=== PATIENT | female | born 1960 | race Caucasian/White ===

== ENCOUNTER → 2017-05-29 15:58 | Outpatient (CLI) | payer BC, SELFPAY ==
--- NOTE | 2017-05-29 16:04 | MM_ITS ---
MM Dig screening mamm BI w/CAD CAD Screening ORDERING PHYSICIAN : Yanna Baker MD PATIENT AGE: 56 years GENDER: Female HISTORY. No hormones. No new complaints. Family history. Mother with breast cancer age 54 TECHNIQUE: Standard CC and MLO images were obtained. R2 CAD reviewed. COMPARISON: Previous mammograms: April 2016, March 2015, December 2013 FINDINGS: Low-density breast bilaterally with generalized fatty replacement. No dominant mass nor suspicious calcifications. No significant architectural distortion. No new findings of concern. Is stable deep axillary lymph nodes bilaterally. Follow-up in one year adequate bilateral IMPRESSION: Stable bilateral mammogram with no significant new areas of concern. BI-RADS Category: 1 Negative RECOMMENDED FOLLOW-UP: 1YR - 1 YEAR FOLLOW-UP (A letter has been sent to the patient regarding results of the study.)
== END ==
PROVIDERS: Family Provider Family Medicine; PCP Family Medicine; Visit Provider Family Medicine
DX: Z12.31 Encounter for screening mammogram for malignant neoplasm of breast (principal)
CPT/HCPCS: 77067

== ENCOUNTER → 2017-08-10 15:56 | Outpatient (CLI) | payer BC, SELFPAY ==
--- NOTE | 2017-08-10 16:07 | XR_ITS ---
XR hip LT 2-3V w/pelvis HISTORY: Left hip pain ITS.REASON: DULCE MARIA HIP PAIN ORDERING PHYSICIAN: Leslie Ames PATIENT AGE: 57 years FINDINGS: No fracture or dislocation is evident. No significant degenerative change. No lytic or blastic change. Unremarkable soft tissues IMPRESSION: Negative left hip
--- NOTE | 2017-08-10 16:07 | XR_ITS ---
XR hip RT 2-3V w/pelvis HISTORY: Right hip pain ITS.REASON: DULCE MARIA HIP PAIN ORDERING PHYSICIAN: Leslie Ames PATIENT AGE: 57 years FINDINGS: No fracture or dislocation is evident. No significant degenerative change. No lytic or blastic change. Unremarkable soft tissues. There is a small focus of calcification in the acetabulum inferiorly consistent with a bone island well-circumscribed or could be due to an overlying phlebolith. Nonetheless, it does have a benign appearance. IMPRESSION: Small acetabular bone island versus overlying phlebolith otherwise negative right hip
== END ==
PROVIDERS: PCP Nurse Practitioner Family; Visit Provider Nurse Practitioner Family
DX: M25.552 Pain in left hip (principal); M25.551 Pain in right hip
CPT/HCPCS: 73502

== ENCOUNTER → 2017-08-31 14:31 | Outpatient (CLI) | payer BC, SELFPAY ==
--- NOTE | 2017-08-31 14:40 | US_ITS ---
US Arterial Ankle Brachial Ind INDICATION: Hypertension, bilateral leg pain at rest, claudication ORDERING PHYSICIAN: Leslie Ames PATIENT AGE: 57 years TECHNIQUE: Segmental pressures obtained of both right and left leg. These are compared to brachial blood pressure to yield index at each level sampled including summary YANIV. The data sheets from the procedure are available in PACS FINDINGS Rest study only performed today No prior studies available for comparison. Blood pressures reported are in millimeters mercury. RIGHT LEG YANIV = 1.1. Brachial BP: 138 Thigh BP: 160 Calf BP: 159 Ankle PT: 159 Ankle DP : 145 Digit =123 LEFT LEG YANIV = 1.0 Brachial BPD: 133 Thigh BP: 151 Calf BP: 148 Ankle PT:140 Ankle DP: 136 Digit = 125 Pulses and waveforms: Normal IMPRESSION: The ABIs as reported above are within normal limits. Waveforms and pulses are also unremarkable.
== END ==
PROVIDERS: Family Provider Family Medicine; PCP Nurse Practitioner Family; Visit Provider Nurse Practitioner Family
DX: M79.604 Pain in right leg (principal); M79.605 Pain in left leg
CPT/HCPCS: 93922

== ENCOUNTER → 2018-01-22 14:09 | Outpatient (CLI) | payer BC, SELFPAY ==
[2018-01-22 15:57] LABS: Blood Urea Nitrogen 20 mg/dL (7-18); Creatinine,Serum 0.57 mg/dL (0.55-1.02); Estimated Glomerular Filt Rate 109 ml/min (>60); GFR (African American) 132 ML/MIN (>60)
== END ==
PROVIDERS: PCP Family Medicine; Visit Provider Family Medicine
DX: Z01.812 Encounter for preprocedural laboratory examination (principal)
CPT/HCPCS: 36415; 82565; 84520

== ENCOUNTER → 2018-01-25 11:16 | Outpatient (CLI) | payer BC, SELFPAY ==
--- NOTE | 2018-01-25 11:25 | CT_ITS ---
CT abdomen pelvis w con CLINICAL INDICATION: Right lower quadrant pain ITS.REASON: RLQ PAIN ORDERING PHYSICIAN: Yanna Baker MD PATIENT AGE: 57 years COMPARISON: None TECHNIQUE: Axial images obtained with sagittal and coronal reformats. All CT scans at the facility use one or more dose reduction, viz: automated exposure control, ma/kV adjustment per patient size (including targeted exams where dose is matched to indication, i.e. head), or iterative reconstruction technique. PROCEDURE: Oral Contrast: Redicat IV Contrast: 75 mL's of Isovue-370. FINDINGS: No acute finding in the lung bases. The liver, spleen, gallbladder, adrenal glands, and pancreas have an unremarkable appearance. There is a small calcific density along the periphery of the right hepatic lobe. This is well-circumscribed and coarse in nature etiology indeterminate. No renal or ureteral calculi. No hydronephrosis or renal mass. There are scattered small lymph nodes in the mesentery's within the right lower quadrant and also in the retroperitoneum. The appendix has an unremarkable appearance. No intestinal obstruction or free air. No focal inflammatory change. There is been a prior hysterectomy. No pelvic mass or abnormal fluid collection, focal inflammatory change, or diverticulitis evident. No acute bony findings. Small bone island is present in the right ischium. IMPRESSION: No acute abdominal or pelvic findings. No evidence of appendicitis
== END ==
PROVIDERS: Family Provider Family Medicine; PCP Family Medicine; Visit Provider Family Medicine
DX: R10.31 Right lower quadrant pain (principal)
CPT/HCPCS: 74177; Q9967

== ENCOUNTER → 2018-07-06 16:14 | Outpatient (CLI) | payer BC, SELFPAY ==
--- NOTE | 2018-07-06 16:17 | MM_ITS ---
MM Dig screening mamm BI w/CAD CAD Screening COMPARISON: Digital mammograms with CAD 05/29/2017 and 04/22/2016 INDICATION: There is a history of breast cancer patient's mother diagnosed at age 54. TECHNIQUE: Standard CC and MLO images were obtained. R2 CAD reviewed. FINDINGS: The breasts are composed primarily of fat with scattered fibroglandular densities throughout each breast. There are multiple mole markers on each breast. There is no suspicious lesion and there are no suspicious microcalcifications. There are small nodes both axilla. IMPRESSION: Fatty type breast parenchyma with no suspicious lesion seen BI-RADS Category: 2 Benign Finding(s) RECOMMENDED FOLLOW-UP: 1YR - 1 YEAR FOLLOW-UP (A letter has been sent to the patient regarding results of the study.)
== END ==
PROVIDERS: PCP Family Medicine; Visit Provider Family Medicine
DX: Z12.31 Encounter for screening mammogram for malignant neoplasm of breast (principal)
CPT/HCPCS: 77067

== ENCOUNTER → 2019-09-07 15:24 | Outpatient (CLI) | payer OTHER, SELFPAY ==
--- NOTE | 2019-09-07 15:33 | MM_ITS ---
PROCEDURE: MM DIG SCREENING MAMM BI W/CAD Digital Breast Tomosynthesis Included CLINICAL INDICATION: SCREENING There is a history of breast cancer patient's mother diagnosed after menopause. COMPARISON: [facility] DIG MAMM-SCREEN DULCE MARIA W/CAD from 04/22/2016 [facility] MM Dig screening mamm BI w/CAD from 05/29/2017 [facility] MM Dig screening mamm BI w/CAD from 07/06/2018 TECHNIQUE: Standard CC and MLO images and 3D Tomosynthesis was obtained. R2 CAD reviewed. FINDINGS: The breasts are composed primarily of fat with minimal scattered fibroglandular densities throughout each breast. There is a mole marker right breast. There is no suspicious lesion in either breast and no suspicious microcalcifications. There is a fatty replaced node seen in both axilla. IMPRESSION: Fibrofatty parenchyma with no suspicious lesions seen BI-RAD Category: 1 Negative FOLLOW-UP: 1YR 1 Year Follow-up (A letter has been sent to the patient regarding results of the study.) Dictated by: Dr. Woo Barraza MD 09/08/2019 11:[address] Woo Barraza MD in [place] 09/08/2019 11:27
== END ==
PROVIDERS: PCP Family Medicine; Visit Provider Family Medicine
DX: Z12.31 Encounter for screening mammogram for malignant neoplasm of breast (principal)
CPT/HCPCS: 77063; 77067

== ENCOUNTER → 2020-02-22 15:00 | Outpatient (CLI) | payer OTHER, SELFPAY ==
[2020-02-24 13:50] LABS: Covid-19 Nasal PCR Sendout Lex Not Detected
== END ==
PROVIDERS: PCP Family Medicine; Visit Provider Family Medicine
DX: Z03.818 Encounter for observation for suspected exposure to other biological agents ruled out (principal)
CPT/HCPCS: U0004

== ENCOUNTER 2020-07-25 09:49 | Emergency (ER) | payer OTHER, SELFPAY ==
[2020-07-25 09:50] VITALS: BP 162/88; PULSE 69; RESP 18; TEMP 36.4; O2SAT 98; BMI 38.7
--- NOTE | 2020-07-25 10:01 | CT_ITS ---
PROCEDURE: CT HEAD/BRAIN WO CON CLINICAL INDICATION: head injury Head injury with headache/pain, contusion, abrasion or hematoma COMPARISON: No exams were available for comparison TECHNIQUE: Axial images obtained. All CT scans at the facility use one or more dose reduction, viz: automated exposure control, ma/kV adjustment per patient size (including targeted exams where dose is matched to indication, i.e. head), or iterative reconstruction technique. FINDINGS: No midline shift, mass effect, intracranial hemorrhage, hydrocephalus, or extra-axial fluid collection is evident. The calvarium has an unremarkable appearance. No mastoid effusion. No sinus air-fluid level. IMPRESSION: No acute intracranial finding Dictated by: Bharat Baxter MD 07/25/2020 13:38 Bharat Baxter MD in [place] 07/25/2020 13:38
--- NOTE | 2020-07-25 10:01 | CT_ITS ---
PROCEDURE: CT CERVICAL SPINE WO CON CLINICAL INDICATION: head injury Neck injury with pain, contusion/abrasion or hematoma, cervical sprain/strain the COMPARISON: No exams were available for comparison TECHNIQUE: Axial images obtained with sagittal and coronal reformats. All CT scans at the facility use one or more dose reduction, viz: automated exposure control, ma/kV adjustment per patient size (including targeted exams where dose is matched to indication, i.e. head), or iterative reconstruction technique. Axial spiral CT scanning performed of the cervical spine beginning at the base of the skull and continuing to the upper T-spine. 3-D multiplanar reconstruction with 3-D manipulation of volumetric data set in image rendering was completed by the radiologist and/or technologist with the supervision of the radiologist on independent workstation. FINDINGS: Normal alignment. No acute fracture or dislocation. Degenerative disc disease is present at C5-C6. 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 Lung apices are clear. Scattered small nodes are present in the neck and supraclavicular region. IMPRESSION: No acute fracture Dictated by: Bharat Baxter MD 07/25/2020 13:41 Bharat Baxter MD in [place] 07/25/2020 13:41
--- NOTE | 2020-07-25 10:18 | HMH.EDGENADL ---
ED Disposition Clinical Impression: Concussion Disposition: Home, Self-Care Condition on Discharge: Good Additional Instructions: Return to emergency department for vomiting numbness weakness or tingling in arms or legs or any other concerns within the next 8 hours otherwise follow-up with your primary care physician within next few days. Prescriptions: Ondansetron [Zofran 4mg ODT] 4 mg PO TIDP PRN #15 tab PRN Reason: Nausea Ondansetron [Zofran 4mg ODT] 4 mg PO TIDP PRN #15 tab PRN Reason: Nausea Transmission Status: Pending to [facility] Referrals: Yanna Baker MD [Primary Care Provider] - - Critical Care Critical Care Time: No Attestation: On 07/25/20, the high probability of a clinically significant, sudden or life threatening deterioration of the following system(s) required my full and direct attention, intervention and personal management. The time I documented below is in addition to time spent performing reported procedures but includes the following listed in this critical care notation. Medical Decision Making - Medical Records Medical records reviewed: Yes: I reviewed the patient's medical records. - Stefan Inquiry Pt receiving controlled substance: No Vital Signs: 07/25/20 09:50 Temperature 97.5 F L Temperature Source Oral Pulse Rate [Left Radial] 69 Respiratory Rate 18 Blood Pressure [Right Arm] 162/88 H Blood Pressure Mean [Right Arm] 112 Blood Pressure Source [Right Arm] Automatic Cuff Blood Pressure Position [Right Arm] Sitting 02 Sat by Pulse Oximetry 98 Oxygen Delivery Method Room Air Orders (Tests/Meds): ED MEDICATIONS Discontinued Medications Generic Name Dose Route Start Last Admin Trade Name Freq PRN Reason Stop Dose Admin Acetaminophen 1,000 mg 07/25/20 10:02 07/25/20 10:05 Acetaminophen 500mg Tab PO 07/25/20 10:03 1,000 mg ONCE ONE Administration Ondansetron HCl 4 mg 07/25/20 10:01 07/25/20 10:05 Ondansetron 4mg Odt SL 07/25/20 10:02 4 mg ONCE ONE Administration ORDERS Category Date Time Status CT cervical spine wo con Stat Cat Scan 07/25/20 10:[address] head/brain wo con Stat Cat Scan 07/25/20 10:01 Taken Medical Decision Narrative: 60-year-old female with fall from height of 3 feet. She is awake and alert with normal neurological exam at this time. Has no obvious trauma and is not on blood thinners. Due to mechanism CT head and CT C-spine obtained for evaluation. Given Tylenol and Zofran as well. Head and CT cervical spine showed no surgical intervention needed. Otherwise she is feeling better on reexamination at 11 AM she is awake and alert has mild nausea however no headache. I have given her concussion precautions as well as return to work precautions as well. Plan to discharge with return precautions and Zofran General Adult HPI - General Chief complaint: PAIN Stated complaint: [id number] fell 3 ft from ladder, hit head Time Seen by Provider: 07/25/20 10:00 Mode of Arrival: Ambulatory Limitations: No Limitations Description of Symptoms (Recalled from ER Triage Doc. by RN): c/o head pain and and nausea after she fell at work hitting her head. No LOC - History of Present Illness HPI narrative: 60-year-old female presents with head injury. She says she was working and fell off of a ladder about 3 feet in distance. She says that she was dazed afterward however does not have any amnesia of the event. She has nausea no vomiting. She has no numbness weakness or tingling in arms or legs. No loss of consciousness. She is not on blood thinners. She is having a occipital headache dull nonradiating and constant. She also claims to have paraspinal neck tenderness. Onset (ago): hour(s) (1) Location: head Radiation: non-radiation Severity: mild Quality: dull Consistency: constant - Related Data Previous Rx's Medication Instructions Recorded Ondansetron [Zofran 4mg ODT] 4 mg PO TIDP
[2020-07-25 11:11] VITALS: BP 171/86; PULSE 64; RESP 20; TEMP 36.4; O2SAT 99
== END 2020-07-25 11:13 | disposition home or self-care (01) ==
PROVIDERS: Emergency Provider Emergency Medicine; PCP Family Medicine
DX: S06.0X9A Concussion with loss of consciousness of unspecified duration, initial encounter (principal); W11.XXXA Fall on and from ladder, initial encounter; Y92.69 Other specified industrial and construction area as the place of occurrence of the external cause; Y99.0 Civilian activity done for income or pay
CPT/HCPCS: 70450; 72125; 99282

== ENCOUNTER 2020-11-05 13:06 | Emergency (ER) | payer OTHER, SELFPAY ==
[2020-11-05 13:13] VITALS: PULSE 86; RESP 18; O2SAT 96; BMI 38.7
[2020-11-05 13:15] VITALS: BP 138/70; PULSE 86; RESP 18; TEMP 36.7; O2SAT 96; BMI 38.7
--- NOTE | 2020-11-05 13:37 | HMH.EDUTC ---
[facility] [place] Disposition Clinical Impression: Muscle spasm Disposition: Home, Self-Care Condition on Discharge: Good Instructions: DI for Muscle Spasm Additional Instructions: Continue medications as prescribed by your Family Doctor Follow up with them as scheduled Return if needed Straight to ER if any life threatening symptoms Warm compresses may help with muscle pain Over the counter Lidocaine patches may help with pain and discomfort Referrals: Yanna Baker MD [Primary Care Provider] - As needed Time of Disposition: 14:42 Medical Decision Making - Stefan Inquiry Pt receiving controlled substance: No Stefan was queried for this patient: No Vital Signs: 11/05/20 13:13 11/05/20 13:15 11/05/20 14:41 Temperature 98.0 F 98.0 F Temperature Source Oral Pulse Rate 86 Pulse Rate [Left Radial] 86 86 Respiratory Rate 18 18 18 Blood Pressure 138/70 Blood Pressure [Right Arm] 138/70 Blood Pressure Mean [Right Arm] 92 02 Sat by Pulse Oximetry 96 96 Oxygen Delivery Method Room Air Room Air Orders (Tests/Meds): ED MEDICATIONS Discontinued Medications Generic Name Dose Route Start Last Admin Trade Name Radha PRN Reason Stop Dose Admin Ketorolac Tromethamine 60 mg 11/05/20 14:16 11/05/20 14:20 Ketorolac 60mg/2ml Vial IM 11/05/20 14:17 60 mg ONCE ONE Administration - Radiology Data #1 Image(s): Chest (with right ribs) Image Reviewed: Yes I have reviewed radiologist's interpretation No acute abnormality. No evidence of rib fractures Medical Decision Narrative: Medication discussed with pharmacy [facility] [place] HPI - General Stated complaint: possible pulled muscle rt side Time Seen by Provider: 11/05/20 13:38 Mode of Arrival: Ambulatory Source of Information: Patient Limitations: No Limitations Description of Symptoms (Recalled from Triage Doc. by RN): States that she has some burning in middle of her back shoulders that comes around to her right arm under her breast. She thought it was a pulled muscle but she went to the MD thursday and got some medicine with no improvement. HEENT Symptoms (Recalled from RN notes): No Resp Symptoms (Recalled from RN notes): No Skin Symptoms (Recalled from RN notes): No MS Symptoms (Recalled from RN notes): Yes Functional Status (Recalled from RN notes): WNL - History of Present Illness Provider Complaint: Patient states that she has been having pain on her right side State that pain/burning like feeling starts in her right mid back are around her ribs and comes around under her arm and in right breast State that she seen her PCP on Thursday and they give her some medication but it hasnt been helping so she came in today to see if she could get something else or something for the pain Denies known injury - Related Data Allergies Allergy/AdvReac Type Severity Reaction Status Date / Time No Known Drug Allergies Allergy Unknown Verified 07/25/20 10:05 [NO KNOWN DRUG ALLERGIES] - Worker's Comp Is this a Worker's Comp case?: No [facility] History - Hepatitis A Screen Drug use history?: No High risk sexual behaviors?: No History of sexually transmitted infection?: No Currently employed?: No Childcare worker?: No Do you have indoor plumbing?: Yes Do you have electricity?: Yes Attestation statement:: This patient has been screened for Hepatitis A risk factors. I have reviewed the patient's past medical history: Yes - Social History Alcohol Intake: never Occupational Status: other ROS Obtained: Yes All systems reviewed & no additional complaints, Yes Systems reviewed as appropriate & no additional complaints - Constitutional Constitutional: Reports system reviewed and no additional complaints, except as docu - ENT Ears, Nose, Mouth, and Throat: Reports system reviewed and no additional complaints, except as docu - Cardiovascular Cardiovascular: Reports system reviewed and no additional complaints, except as docu - Respiratory Res
--- NOTE | 2020-11-05 13:57 | XR_ITS ---
PROCEDURE: XR RIBS RT MIN 3V W CXR1V CLINICAL INDICATION: PAIN COMPARISON: CR CXR CHEST(2 VIEWS-NOT PORTABLE) from 04/22/2016 FINDINGS: No focal consolidation, pleural effusions or pneumothorax. No evidence of rib fractures. Bone density is normal. There is linear lucency noted adjacent to the right heart border on a single oblique image, likely artifactual. The heart size is normal. Visualized thoracic spine demonstrates minor degenerative changes. IMPRESSION: No acute abnormality. No evidence of rib fractures. Dictated by: Mandy Luke 11/05/2020 14:36 Mandy Luke in [place] 11/05/2020 14:36
[2020-11-05 14:41] VITALS: BP 138/70; PULSE 86; RESP 18; TEMP 36.7; O2SAT 96
== END 2020-11-05 14:46 | disposition home or self-care (01) ==
PROVIDERS: Emergency Provider Nurse Practitioner; PCP Family Medicine
DX: M62.838 Other muscle spasm (principal)
CPT/HCPCS: 71101; 96372; 99202; G0463

== ENCOUNTER → 2021-01-24 15:14 | Outpatient (CLI) | payer OTHER, SELFPAY ==
--- NOTE | 2021-01-24 15:16 | MM_ITS ---
PROCEDURE: MM DIG SCREENING MAMM BI W/CAD Digital Breast Tomosynthesis Included CLINICAL INDICATION: SCREENING There is a history of breast cancer patient's mother diagnosed at age 50. COMPARISON: [facility] MM Dig screening mamm BI w/CAD from 05/29/2017 [facility] MM Dig screening mamm BI w/CAD from 07/06/2018 [facility] MM DIG SCREENING MAMM BI W/CAD from 09/07/2019 TECHNIQUE: Standard CC and MLO images and 3D Tomosynthesis was obtained. R2 CAD reviewed. FINDINGS: The breasts are composed primarily of fat with minimal scattered fibroglandular densities in each breast. There is a mole marker on each breast. There are no CAD markings. There is no new or suspicious lesion in either breast and no suspicious microcalcifications. There are small nodes in both axilla. IMPRESSION: Fibrofatty parenchyma with no suspicious lesions seen BI-RAD Category: 1 Negative FOLLOW-UP: 1YR 1 Year Follow-up (A letter has been sent to the patient regarding results of the study.) Dictated by: Dr. Woo Barraza MD 01/25/2021 15:42 Dr. Woo Barraza MD in [place] 01/25/2021 15:42
== END ==
PROVIDERS: PCP Family Medicine; Visit Provider Family Medicine
DX: Z12.31 Encounter for screening mammogram for malignant neoplasm of breast (principal)
CPT/HCPCS: 77063; 77067

== ENCOUNTER → 2021-08-06 16:46 | Outpatient (CLI) | payer OTHER, SELFPAY ==
--- NOTE | 2021-08-06 16:53 | XR_ITS ---
PROCEDURE INFORMATION: Exam: XR Chest Exam date and time: 08/06/2021 4:54 PM Age: 61 years old Clinical indication: Cough and shortness of breath and wheezing; Additional info: SOB TECHNIQUE: Imaging protocol: XR of the chest. Views: 2 views. COMPARISON: CR XR RIBS RT MIN 3V W CXR1V 11/05/2020 1:53 PM FINDINGS: Lungs: Unremarkable. No consolidation. Pleural spaces: Unremarkable. No pleural effusion. No pneumothorax. Heart/Mediastinum: Unremarkable. No cardiomegaly. Bones/joints: Unremarkable. IMPRESSION: No acute findings.
== END ==
PROVIDERS: PCP Family Medicine; Visit Provider Family Medicine
DX: R06.02 Shortness of breath (principal)
CPT/HCPCS: 71046

== ENCOUNTER 2021-10-24 10:46 | Emergency (ER) | payer OTHER, SELFPAY ==
[2021-10-24 10:59] VITALS: BP 143/73; PULSE 84; RESP 18; TEMP 36.5; O2SAT 96; BMI 38.7
--- NOTE | 2021-10-24 11:06 | HMH.EDUTC ---
[facility] [place] Disposition Clinical Impression: Viral syndrome Disposition: Home, Self-Care Condition on Discharge: Good Instructions: DI for COVID-19 (Suspected or Confirmed ), Preventing the Spread of Coronavirus Discharge Instructions Additional Instructions: Drink plenty of fluids. Take tylenol or ibuprofen for pain or fever. Take the medications as directed. Follow up with your regular doctor. GO TO THE ER FOR ANY WORSENING SYMPTOMS Quarantine until you know the results of your covid-19 test. Notify your school or workplace of your results and follow their instructions regarding return to work/school. Prescriptions: Ondansetron [Zofran 4mg ODT] 4 mg PO Q8HP PRN #20 tab PRN Reason: Nausea Transmission Status: Received by [facility] Benzonatate [Benzonatate 100mg cap] 100 mg PO TIDP PRN #30 cap PRN Reason: Cough Transmission Status: Received by [facility] Referrals: Yanna Baker MD [Primary Care Provider] - Forms: Work/School Release Time of Disposition: 11:33 Medical Decision Making - Medical Records Medical records reviewed: No: I reviewed the patient's medical records. - Stefan Inquiry Pt receiving controlled substance: No Vital Signs: 10/24/21 10:59 10/24/21 11:34 Temperature 97.7 F 97.7 F Temperature Source Temporal Artery Scan Pulse Rate 84 Pulse Rate [Right] 84 Respiratory Rate 18 18 Blood Pressure 143/73 H Blood Pressure [Left Arm] 143/73 H Blood Pressure Mean [Left Arm] 96 Blood Pressure Source [Left Arm] Automatic Cuff Blood Pressure Position [Left Arm] Sitting 02 Sat by Pulse Oximetry 96 Oxygen Delivery Method Room Air [facility] [place] HPI - General Stated complaint: covid test Time Seen by Provider: 10/24/21 11:06 Mode of Arrival: Ambulatory Source of Information: Patient Limitations: No Limitations Description of Symptoms (Recalled from Triage Doc. by RN): pt reports she had a sore throat, headache and cough since last night. She denies fever and covid exposure but states she is just not feeling well HEENT Symptoms (Recalled from RN notes): Yes Resp Symptoms (Recalled from RN notes): Yes Skin Symptoms (Recalled from RN notes): No MS Symptoms (Recalled from RN notes): No Functional Status (Recalled from RN notes): na - History of Present Illness Provider Complaint: She states that since yesterday she has felt achy and had malais.e - Related Data Previous Rx's Medication Instructions Recorded Benzonatate [Benzonatate 100mg 100 mg PO TIDP PRN #30 cap 10/24/21 cap] Ondansetron [Zofran 4mg ODT] 4 mg PO Q8HP PRN #20 tab 10/24/21 Allergies Allergy/AdvReac Type Severity Reaction Status Date / Time No Known Drug Allergies Allergy Unknown Verified 07/25/20 10:05 [NO KNOWN DRUG ALLERGIES] - Worker's Comp Is this a Worker's Comp case?: No [facility] History - Hepatitis A Screen Attestation statement:: This patient has been screened for Hepatitis A risk factors. I have reviewed the patient's past medical history: Yes - Social History Alcohol Intake: never Occupational Status: other ROS Obtained: Yes All systems reviewed & no additional complaints - Constitutional Constitutional: Denies chills, Denies fever(s) - Eyes Eyes: Denies eye discharge - ENT Ears, Nose, Mouth, and Throat: Denies sore throat - Cardiovascular Cardiovascular: Denies chest pain - Respiratory Respiratory: Denies chest congestion, Reports cough Physical Exam - General General appearance: alert, in no apparent distress - Head Head exam: atraumatic, normocephalic, normal inspection - Eye Eye exam: Present: normal appearance, PERRL, EOMI - ENT ENT exam: Present: normal exam, normal oropharynx, mucous membranes moist, TM's normal bilaterally, normal external ear exam - Neck Neck exam: Present: normal inspection, full ROM, trachea midline. Absent: meningismus, lymphadenopathy - Chest Chest inspection: Present: nor
[2021-10-24 11:34] VITALS: BP 143/73; PULSE 84; RESP 18; TEMP 36.5
== END 2021-10-24 11:37 | disposition home or self-care (01) ==
PROVIDERS: Emergency Provider Nurse Practitioner Family; PCP Family Medicine
DX: Z20.822 Contact with and (suspected) exposure to COVID-19 (principal); B34.9 Viral infection, unspecified; J02.9 Acute pharyngitis, unspecified; R51.9 Headache, unspecified; R05.9 Cough, unspecified
CPT/HCPCS: 99212; C9803; G0463; U0003; U0005

== ENCOUNTER → 2022-01-29 16:46 | Outpatient (CLI) | payer OTHER, SELFPAY ==
--- NOTE | 2022-01-29 16:51 | XR_ITS ---
PROCEDURE INFORMATION: Exam: XR Lumbosacral Spine Exam date and time: 01/29/2022 4:56 PM Age: 61 years old Clinical indication: Pain; Sciatica; Right; Additional info: Low back pain sciatica TECHNIQUE: Imaging protocol: Radiologic exam of the lumbosacral spine. Views: 4 or 5 views. COMPARISON: [id number] CT abdomen pelvis w con 01/25/2018 11:50 AM FINDINGS: Bones/joints: There is no evidence of acute fracture.There is no evidence of malalignment or dislocation. Intervertebral disc space narrowing L1 through L3 consistent with degenerative disc disease.. Soft tissues: Unremarkable. IMPRESSION: 1. There is no evidence of acute fracture.There is no evidence of malalignment or dislocation. 2. Intervertebral disc space narrowing L1 through L3 consistent with degenerative disc disease..
== END ==
PROVIDERS: PCP Family Medicine; Visit Provider Family Medicine
DX: M54.50 Low back pain, unspecified (principal)
CPT/HCPCS: 72110

== ENCOUNTER → 2022-03-06 13:50 | Outpatient (CLI) | payer OTHER, SELFPAY ==
--- NOTE | 2022-03-06 13:57 | MM_ITS ---
PROCEDURE INFORMATION: Exam: MG Bilateral Screening 3D Mammography Exam date and time: 03/06/2022 2:02 PM Age: 61 years old Clinical indication: Screening examination TECHNIQUE: Imaging protocol: Bilateral Screening tomosynthesis and 2D mammography including computer-aided detection (CAD) when performed. COMPARISON: 1. MG MM DIG SCREENING MAMM BI W/CAD 01/24/2021 3:16 PM 2. MG MM DIG SCREENING MAMM BI W/CAD 09/07/2019 3:52 PM FINDINGS: MAMMOGRAPHY: Breast composition: The breasts are almost entirely fatty. Mass: None. Architectural distortion: None. Calcifications: No suspicious calcifications. Asymmetric density: None. Skin thickening: None. Axillary adenopathy: None. IMPRESSION: No mammographic evidence of malignancy. Annual screening is recommended unless otherwise clinically indicated. ASSESSMENT: BI-RADS Category 1: Negative
== END ==
PROVIDERS: PCP Family Medicine; Visit Provider Family Medicine
DX: Z12.31 Encounter for screening mammogram for malignant neoplasm of breast (principal)
CPT/HCPCS: 77063; 77067

== ENCOUNTER → 2022-07-02 15:32 | Outpatient (CLI) | payer OTHER, SELFPAY ==
--- NOTE | 2022-07-02 15:39 | XR_ITS ---
FINAL REPORT CLINICAL HISTORY: SOA COMPARISON: 08/06/2021 FINDINGS: TWO-VIEW CHEST The heart size is normal. The mediastinum is normal. There is mild right base atelectasis or scar. The left lung is clear. There is no pneumothorax. IMPRESSION: Right base atelectasis or scar. Reviewed, Interpreted and Dictated by Melo Wright III, MD Transcribed by Nita Martinez Authenticated and . [facility]
== END ==
PROVIDERS: PCP Family Medicine; Visit Provider Family Medicine
DX: R06.02 Shortness of breath (principal)
CPT/HCPCS: 71046

== ENCOUNTER → 2022-11-06 11:47 | Outpatient (CLI) | payer OTHER, SELFPAY ==
--- NOTE | 2022-11-06 | CA_ITS ---
APPROVED REPORT Exam: Exercise Treadmill Technologist: Bettina Guerin, Ht: 5 ft 1 in Wt: 197 lbs BSA: 1.88 m2 HR: 77 bpm BP: 147/78 mmHg Rhythm: NSR, LOW VOLTAGE QRS, CANNOT R/O OLD INFERIOR DC Medical History Medical History: HTN, Hyperlipidemia Medications: Nexium,,,,, Prozac,,,,, Allergies: No known drug allergies Cardiac Risk Factors: HTN, Hyperlipidemia, FHX of CAD Stress Test Details Test: Marc HR Resting HR: 79 bpm Max Heart Rate (APMHR): 158 bpm Max HR Achieved: 146 bpm Target HR (85% APMHR): 134 bpm % of APMHR: 92 Recovery HR: 89 bpm HR response to stress: Normal HR response to stress BP Resting BP: 147.0/78 mmHg Max BP: 209/62 mmHg Recovery BP: 131.0/76.0 mmHg BP response to stress: Abnormal hypertensive response to stress. ECG Resting ECG: NSR, LOW VOLTAGE QRS, CANNOT R/O OLD INFERIOR DC Stress ECG: NO CHANGE Arrhythmia: PACs Recovery ECG: NO CHANGE Recovery Arrhythmia: PACs Clinical Exercise duration: 03:18 min Highest Stage Achieved: Exercise capacity: 4.6 METs Overall Exercise Capacity for Age: Poor Stress ECG Conclusion PT WALKED 3:18 ON STAGE I MARC PROTOCOL (STAGE 1 HELD TO COMPLETION). SHE ACHIEVED A TOTAL OF 4.6 METS. THE PATIENT EXHIBITED POOR EXERCISE CAPACITY. SHE HAS A NORMAL HR, BUT EXAGGERATED BP, RESPONSE TO EXERCISE. MAX HR: 146 % OF PM: 92% MAX BP: 209/62 METS: 4.6 TEST STOPPED DUE TO: SOA PT HAD DYSPNEA NO CP RARE PAC DURING STRESS AND AT RECOVERY NO ST CHANGES WITH STRESS CONCLUSION: POOR EXERCISE CAPACITY EXAGGERATED BP RESPONSE TO EXERCISE NO EVIDENCE OF ISCHEMIA ON STRESS TEST Test Summary REST . . . . . . . Standing REST . . . . . . . Sitting REST 05:31 0.0 0.0 79 . 147/ 78 . . Stage 1 01:00 10.0 1.7 109 . . . . Stage 1 02:00 10.0 1.7 142 . . . . Stage 1 . . . . . . . Stage held Stage 1 03:00 10.0 1.7 138 . . . . Stage 1 . . . . . . . Stage resumed Stage 1 03:18 10.0 1.7 144 . . . Stop exercise at 03:18 RECOVERY 01:00 0.0 0.0 109 . . . . RECOVERY 02:00 0.0 0.0 97 . . . . RECOVERY 03:00 0.0 0.0 90 . 183/ 61 . . RECOVERY 04:00 0.0 0.0 91 . 183/ 61 . . RECOVERY 05:00 0.0 0.0 89 . 209/ 62 . . RECOVERY 06:00 0.0 0.0 90 . 209/ 62 . . RECOVERY 07:00 0.0 0.0 87 . 131/ 76 . . RECOVERY 07:01 0.0 0.0 87 . 131/ 76 . . Electronically signed by : Yoana Aguilar, 11/09/2022 15:28:24
== END ==
PROVIDERS: PCP Family Medicine; Visit Provider Family Medicine
DX: I10 Essential (primary) hypertension (principal); E78.5 Hyperlipidemia, unspecified; Z82.49 Family history of ischemic heart disease and other diseases of the circulatory system; R06.09 Other forms of dyspnea
CPT/HCPCS: 93017

== ENCOUNTER → 2023-03-25 14:01 | Outpatient (CLI) | payer OTHER, SELFPAY ==
--- NOTE | 2023-03-25 14:10 | MM_ITS ---
PROCEDURE INFORMATION: Exam: MG Bilateral Screening 3D Mammography Exam date and time: 03/25/2023 2:17 PM Age: 62 years old Clinical indication: Screening examination TECHNIQUE: Imaging protocol: Bilateral Screening tomosynthesis and 2D mammography including computer-aided detection (CAD) when performed. COMPARISON: 1. MG MM DIG SCREENING MAMM BI W/CAD 03/06/2022 2:02 PM 2. MG MM DIG SCREENING MAMM BI W/CAD 01/24/2021 3:16 PM FINDINGS: MAMMOGRAPHY: Breast composition: There are scattered areas of fibroglandular density. Mass: None. Architectural distortion: None. Calcifications: No suspicious calcifications. Asymmetric density: None. Skin thickening: None. Axillary adenopathy: None. IMPRESSION: No mammographic evidence of malignancy. Annual screening is recommended unless otherwise clinically indicated. ASSESSMENT: BI-RADS Category 1: Negative
== END ==
PROVIDERS: PCP Family Medicine; Visit Provider Family Medicine
DX: Z12.31 Encounter for screening mammogram for malignant neoplasm of breast (principal)
CPT/HCPCS: 77063; 77067

== ENCOUNTER 2023-07-27 09:12 | Day surgery (SDC) | payer OTHER, SELFPAY ==
[2023-07-24 08:49] VITALS: BMI 34.9
--- NOTE | 2023-07-27 07:15 | HMH.SCOPE ---
Procedure: Date: 07/27/23 Patient Date of :: 1960 Procedure Performed:: Total colonoscopy with polypectomy Indications:: Patient is a 63-year-old female. She reportedly has a family history of colon cancer in her father at age 58. She underwent colonoscopy with Dr. Ab Agudelo in 2008 which was unremarkable other than suboptimal prep. Last colonoscopy was performed by Dr. Myles on 06/16/2016 at which time she has some diverticulosis and minimal internal hemorrhoids. 5-year follow-up colonoscopy was recommended given the family history. That was 7 years ago. Performing Provider:: Melo Navas MD Referring Provider:: Lissy Baker MD Sedation:: MAC sedation Procedure:: Patient history was obtained and appropriate physical examination was performed. Patient's medications and allergies were reviewed. Informed consent was obtained after explaining the benefits, alternatives, and risks of the procedure including, but not limited to, bleeding, perforation, missed lesions, and adverse reaction to anesthesia medications. Patient was transported to endoscopy procedure room. Patient was connected to monitoring devices. Throughout the procedure the patient's blood pressure, pulse, and oxygen saturations were monitored continuously. Patient identification and planned procedure were verified by the staff. Patient was positioned in lateral decubitus position. Digital anorectal exam was performed. Variable stiffness Olympus colonoscope was inserted and advanced under direct visualization to the cecum. Adequacy of the colonic preparation was noted. The colonoscope was advanced a short distance into the terminal ileum. The colonoscope was then slowly withdrawn while carefully examining the color, texture, anatomy, and integrity of the mucosoa circumferentially. Within the rectum retroflexion was performed. Colonoscope was then withdrawn. . There was some tortuosity to the colon and redundancy. In the ascending colon there was a small polyp removed with cold snare with residual polypoid tissue removed with biopsy forceps. There was some sigmoid diverticulosis. She had minimal internal hemorrhoids with anal papilla. There were external anal skin tags. . Findings:: Small adenomatous appearing polyp in the ascending colon Rare sigmoid diverticulosis Minimal internal hemorrhoids and anal papilla Recommendations:: Repeat colonoscopy pending pathology. Given the polyp and family history likely 3 years. Complications:: None immediately apparent Estimated blood obtained (mL): 1 Colonoscopy Component Colonoscopy Component Was a colonoscopy performed during today's procedure?: Yes Recommended follow up colonoscopy of at least 10 years?: No If no, follow up colonoscopy recommended in ___ years?: 3 Reason for not recommending >/= 10 yr follow-up interval?: See above
[2023-07-27 09:48] VITALS: BP 112/66; PULSE 73; RESP 20; TEMP 36.5; O2SAT 94
[2023-07-27] MEDS: LACTATED RINGERS 1000ML 1,000 ML 25 ML IV (09:54)
--- NOTE | 2023-07-27 10:25 | EXP.ANES.CKL ---
[facility] Disclaimer: The information contained in this section may have been updated after the patient was seen, as this information can be updated by other users. Medical History Coarse tremors Hypertension Surgical History History of tubal ligation Family History Other Colon cancer Family history of diabetes mellitus type II Social History Smoking Status: Never smoker alcohol intake: current substance use type: denies use current occupational status: other Travel in the last 8 weeks: None caffeine: No [place] Anesthesia Checklist Patient Identification Patient Identification: Arm Band, Family and Verbal (Name & ) Structural Data Admitted From: Home Planned Operative Procedure/s: Colonoscopy Consent for Planned Operative Procedure(s) Verified: Yes Verified Documents: Surgical Consent and History and Physical NPO Status Verified Time NPO: 04:00 Chart Verification Results Verified: BUN and Creatinine Additional verifications Fingerstick Blood Glucose: 97 Patient : No Anesthesia Reactions: No Cardiovascular Assessment Heart Sounds: S1 & S2 Pulse Rhythm: Irregular Peripheral Edema: No Airway Assessment Mallampati Score:: Class II C-Spine Mobility Assessed: Yes (FROM) TMJ Mobility Assessed: Yes Dentition: Good Dentition (Nothing loose per pt.) Neurological Assessment Level of Consciousness: Awake, Alert, Appropriate and Follows Commands Hx Seizures: No Numbness or tingling in extremities: No Anesthesia Plan Anesthesia Risk discussed: Yes Anesthesia Plan: Verified ASA Class: III Anesthesia Type: MAC
[2023-07-27 10:33] VITALS: O2SAT 99
[2023-07-27 11:13] VITALS: BP 93/43; PULSE 70; PULSE 71; RESP 14; RESP 18; TEMP 36.2; TEMP 36.3; O2SAT 91; O2SAT 94
[2023-07-27 11:23] VITALS: BP 104/51; PULSE 78; RESP 18; O2SAT 96
[2023-07-27 11:39] VITALS: BP 113/56; PULSE 77; RESP 18; O2SAT 98
[2023-07-29 12:02] LABS: POC Glucose,Bedside 97 (70-110)
== END 2023-07-27 11:40 | disposition home or self-care (01) ==
PROVIDERS: PCP Family Medicine; Visit Provider Surgery
PROC: 0DJD8ZZ Inspection of Lower Intestinal Tract, Via Natural or Artificial Opening Endoscopic (ICD-10-PCS; CPT 45385; principal; 2023-07-27 10:30)
DX: Z12.11 Encounter for screening for malignant neoplasm of colon (principal); Z80.0 Family history of malignant neoplasm of digestive organs; D12.2 Benign neoplasm of ascending colon; K57.90 Diverticulosis of intestine, part unspecified, without perforation or abscess without bleeding; K64.8 Other hemorrhoids; K62.89 Other specified diseases of anus and rectum; Z83.3 Family history of diabetes mellitus
CPT/HCPCS: 45385; 82962

== ENCOUNTER 2023-11-14 12:58 | Emergency (ER) | payer OTHER, SELFPAY ==
[2023-11-14 12:59] VITALS: BP 143/76; PULSE 78; RESP 16; TEMP 36.7; O2SAT 97; BMI 33.6
--- NOTE | 2023-11-14 13:15 | PC.NURSE ---
DR GONSALES AT BEDSIDE
--- NOTE | 2023-11-14 13:32 | ED_ITS ---
Discharge Plan Disposition Patient Disposition: Home, Self-Care Chief Complaint: Wound/Laceration Prescriptions Prescriptions: No Action primidone 50 mg Tablet 50 mg PO HS atorvastatin 80 mg tablet 80 mg PO DAILY meloxicam 15 mg Tablet 15 mg PO DAILY amlodipine 10 mg Tablet 10 mg PO DAILY esomeprazole magnesium 40 mg Capsule,Delayed Release(Dr/Ec) 40 mg PO DAILY ergocalciferol (vitamin D2) [Vitamin D2] 1,250 mcg (50,000 unit) Capsule 1,250 mcg PO DAILY fluoxetine 20 mg Capsule 20 mg PO DAILY olmesartan-hydrochlorothiazide 40-25 mg Tablet 1 tab PO DAILY Ozempic 2 mg/dose (8 mg/3 mL) Pen Injector 2 mg SQ WEEKLY Ozempic 2 mg/dose (8 mg/3 mL) Pen Injector 2 mg SQ WEEKLY Referrals Follow up/Referrals: Yanna Baker MD [Primary Care Provider] - See instructions Activity Restrictions/Add. Instructions Additional Instructions/Restrictions: Call your family doctor to establish care for this visit to the emergency department and schedule follow-up within 48 hours to ensure improvement. If you have any worsening of your condition or any other concerning signs or symptoms, return to the emergency department or your primary care doctor for further evaluation. Take Tylenol 1000 mg every 6 hours (4 times daily) and ibuprofen 400 mg every 6 hours (4 times daily) as needed with food and water to prevent GI upset and kidney damage. Clinical Impressions Clinical Impression: CHI (closed head injury) Qualifiers: Encounter type: initial encounter Qualified Code(s): S09.90XA - Unspecified injury of head, initial encounter Laceration of scalp Qualifiers: Encounter type: initial encounter Qualified Code(s): S01.01XA - Laceration without foreign body of scalp, initial encounter Instructions Patient Instructions: DI for Laceration Repair Print Language Print Language: Icelandic Discharge ED Provider: Navin Hugo General Adult HPI General Chief complaint: Wound/Laceration Stated complaint: WC 11/14/23, lac to head Time Seen by Provider: 11/14/23 13:10 Mode of Arrival: Ambulatory Source of Information: Patient Limitations: No Limitations Description of Symptoms (Recalled from ER Triage Doc. by RN): While at work an item fell and hit her in the head causing a laceration. Denies LOC. History of Present Illness HPI narrative: Please note that above description of symptoms, in this electronic medical record under categorization of recalled from ER triage doctor by RN are reflective of an initial nursing assessment, however, is not reflective of my full history and physical exam that was personally taken and clarified. Consequentially, this preceding description of symptoms, which may include the patient's categorized chief complaint in the EMR, do not reflect my personal clinical impression, and the ultimate description of history of present illness and patient stated complaints should be deferred to this section of the note. Unless stated otherwise or congruent with this section of the note, additional signs, symptoms, or incongruence should be interpreted as inaccurate with my clinical impression. Related Data Home Medications ?Medication ?Instructions ?Recorded ?Confirmed amlodipine 10 mg tablet 10 mg PO DAILY 07/27/23 07/27/23 atorvastatin 80 mg tablet 80 mg PO DAILY 07/27/23 07/27/23 ergocalciferol (vitamin D2) 1,250 1,250 mcg PO DAILY 07/27/23 07/27/23 mcg (50,000 unit) capsule (Vitamin D2) esomeprazole magnesium 40 mg 40 mg PO DAILY 07/27/23 07/27/23 capsule,delayed release fluoxetine 20 mg capsule 20 mg PO DAILY 07/27/23 07/27/23 meloxicam 15 mg tablet 15 mg PO DAILY 07/27/23 07/27/23 olmesartan 40 1 tab PO DAILY 07/27/23 07/27/23 mg-hydrochlorothiazide 25 mg tablet primidone 50 mg tablet 50 mg PO HS 07/27/23 07/27/23 semaglutide 2 mg/dose (8 mg/3 mL) 2 mg SQ WEEKLY 07/27/23 07/27/23 subcutaneous pen injector (Ozempic) semaglutide 2 mg/dose (8 mg/3 mL) 2 mg SQ WEEKLY 07/27/23 07/27/23 subcutaneous pen injector (Ozempic) Allergies Allergy/AdvReac Type Severity Reaction Status Date / Time No Known Drug Allergies Allergy Unknown Verified 07/27/23 10:01 [NO KNOWN DRUG ALLERGIES] [facility] Disclaimer: The information contained in this section may have been updated after the patient was seen, as this information can be updated by other users. Medical History (Updated 11/14/23 @ 13:36 by Navin Hugo MD) Coarse tremors Hypertension Surgical History History of tubal ligation Family History Other Colon cancer Family history of diabetes mellitus type II Social History (Updated 07/27/23 @ 10:27 by Martha Lucas CRNA) Smoking Status: Never smoker alcohol intake: current substance use type: denies use current occupational status: other Travel in the last 8 weeks: None caffeine: No ROS Obtained: Yes All systems reviewed & no additional complaints except as documented Physical Exam General General appearance: alert Head Head exam: normocephalic and other (0.5 cm minimally gaping laceration on crown of head. Hemostatic) Eye Eye exam: Present normal appearance, PERRL and EOMI Neck Neck exam: Present normal inspection, full ROM and trachea midline Respiratory Respiratory exam: Absent respiratory distress, wheezes, stridor, accessory muscle use or prolonged expiratory phase Cardiovascular Cardiovascular exam: Present other (Pulses equal symmetric in upper and lower extremities) Abdominal Exam Abdominal exam: Present soft; Absent distention, tenderness or pulsatile mass Extremities Exam Extremities exam: Absent edema Neurological Exam Neurological exam: Present alert, oriented X3 and CN II-XII intact; Absent motor sensory deficit Skin Skin exam: Present warm and dry; Absent diaphoresis or erythema Medical Decision Making Medical Records Medical records reviewed: Yes I reviewed the patient's medical records. Stefan Inquiry Pt receiving controlled substance: No Stefan was queried for this patient: No Vital Signs: 11/14/23 12:59 Temperature 98.0 F Temperature Source Oral Pulse Rate [Radial] 78 Respiratory Rate 16 Blood Pressure [Right Arm] 143/76 H Blood Pressure Mean [Right Arm] 98 Blood Pressure Source [Right Arm] Automatic Cuff Blood Pressure Position [Right Arm] Sitting 02 Sat by Pulse Oximetry 97 Oxygen Delivery Method Room Air Orders (Tests/Meds): ED MEDICATIONS Discontinued Medications Generic Name Dose Route Start Last Admin Trade Name Freq PRN Reason Stop Dose Admin Acetaminophen 1,000 mg 11/14/23 13:29 Acetaminophen 500mg Tab PO 11/14/23 13:30 ONCE ONE Ibuprofen 600 mg 11/14/23 13:29 Ibuprofen 600 Mg Tablet PO 11/14/23 13:30 ONCE ONE Medical Decision Narrative: 63-year-old female no relevant medical history presenting with laceration on her scalp. Patient states that she was moving wheelbarrow's prior to this visit. 1 wheelbarrow she was unloading from a high surface, fell forward, hit her on the scalp. Thought she was swelling, blood ran on her face, came to the emergency department for further evaluation. No loss of consciousness. Patient not on anticoagulation. Having mild headache at this time. No vision changes, neck pain, or any other concerns. History obtained with patient. On my evaluation, very well-appearing. Mildly hypertensive, but nontachycardic and neurologically intact. GCS 15. She has 0.5 cm minimally gaping laceration on scalp. Differential includes laceration, closed head injury, concussion, intracranial bleed, skull fracture, among others. This is amenable to closure with glue. Laceration was closed. Patient was given Tylenol Motrin for headache. I feel herb ballard has very low likelihood of intracranial hemorrhage given minor trauma, no neurologic deficits, mild headache, no anticoagulation. I also feel it is less likely for her to have skull fracture given no evidence of depressed or basilar skull fracture on exam. CT head considered, but not deemed necessary. Because patient at baseline without signs or symptoms of clinical decompensation, deemed appropriate for discharge. Results were relayed to patient who voiced understanding and were agreeable to outpatient management and follow up. I discussed my clinical impression with patient and answered all questions. At this time, the evidence for any other entities in the differential is insufficient to warrant any further testing or ED observation. This was explained as well. Advisory was given that persistent or worsening symptoms require further evaluation. I confirmed the understanding of this discussion. Leather Tanner disclaimer Much of this encounter note is an electronic railroad watchman spoken language to printed text. Electronic railroad watchman of the spoken language may permit errors. Although I have reviewed the note, some errors may still exist. Procedures Laceration Laceration 1: Site: scalp Size (cm): 0.5 Description: linear Depth: simple, single layer Skin layer closed with: Dermabond Critical Care Critical Care Time Critical Care Time: No
[2023-11-14] MEDS: ACETAMINOPHEN 500MG TAB 1000 MG PO (13:33)
[2023-11-14] MEDS: IBUPROFEN 600 MG TABLET PO (13:33)
[2023-11-14 13:37] VITALS: BP 117/76; PULSE 84; RESP 18; TEMP 36.7; O2SAT 99
--- NOTE | 2023-11-14 13:37 | PC.NURSE ---
Dr. Hugo at bedside
== END 2023-11-14 13:47 | disposition home or self-care (01) ==
PROVIDERS: Emergency Provider Emergency Medicine; PCP Family Medicine
DX: S09.90XA Unspecified injury of head, initial encounter (principal); S01.01XA Laceration without foreign body of scalp, initial encounter; W20.8XXA Other cause of strike by thrown, projected or falling object, initial encounter
CPT/HCPCS: 12001; 99283

== ENCOUNTER 2024-04-27 16:13 | Outpatient (CLI) | payer OTHER, SELFPAY ==
--- NOTE | 2024-04-27 16:16 | MM_ITS ---
PROCEDURE INFORMATION: Exam: MG Bilateral Screening 3D Mammography Exam date and time: 04/27/2024 4:01 PM Age: 63 years old Clinical indication: Screening examination TECHNIQUE: Imaging protocol: Bilateral Screening tomosynthesis and 2D mammography including computer-aided detection (CAD) when performed. COMPARISON: 1. MG MM DIG SCREENING MAMM BI W/CAD 03/25/2023 2:17 PM 2. MG MM DIG SCREENING MAMM BI W/CAD 03/06/2022 2:02 PM FINDINGS: MAMMOGRAPHY: Breast composition: There are scattered areas of fibroglandular density. Mass: None. Architectural distortion: None. Calcifications: No suspicious calcifications. Asymmetric density: None. Skin thickening: None. Axillary adenopathy: None. IMPRESSION: No mammographic evidence of malignancy. Annual screening is recommended unless otherwise clinically indicated. ASSESSMENT: BI-RADS Category 1: Negative.
== END 2024-04-27 23:59 | disposition home or self-care (01) ==
LOC: RAD 16:14
PROVIDERS: PCP Nurse Practitioner; Visit Provider Nurse Practitioner
DX: Z12.31 Encounter for screening mammogram for malignant neoplasm of breast (principal)
CPT/HCPCS: 77063; 77067

== ENCOUNTER 2024-10-13 10:12 | Outpatient (CLI) | payer OTHER, SELFPAY ==
--- NOTE | 2024-10-13 | US_ITS ---
FINAL REPORT CLINICAL HISTORY: GENERALIZED ABDOML PAIN-- rt leg pain FINDINGS: ULTRASOUND ABDOMEN FINDINGS: The liver is unremarkable. Spleen has a normal sonographic appearance. No abnormality of the gallbladder is seen. No biliary ductal dilatation is identified. Right kidney is unremarkable. There is a parapelvic cyst of the left kidney lower pole. Pancreas is not well visualized. IVC and aorta are grossly unremarkable. There is no obvious fluid collection. IMPRESSION: Left kidney parapelvic cyst. Reviewed, Interpreted and Dictated by Scott Norris MD Transcribed by Charity Spicer Authenticated and . [facility]
--- NOTE | 2024-10-13 | CA_ITS ---
FINAL REPORT TECHNIQUE: Compression rockwell scale and Doppler evaluation CLINICAL HISTORY: RLE pain x 6 months. Denies trauma. States it's the entire right leg. HTN, HLD. COMPARISON: None FINDINGS: Femoral and popliteal veins show normal compressibility and flow. Visualized portion of the calf veins are patent by Doppler exam. IMPRESSION: No evidence of right lower extremity deep venous thrombosis Reviewed, Interpreted and Dictated by Scott Norris MD Transcribed by Nikole Michelle Authenticated and [facility]
--- NOTE | 2024-10-13 | US_ITS ---
PROCEDURE: US TRANSVAGINAL CLINICAL INDICATION: GENERALIZED ABDOML PAIN COMPARISON: US US ABDOMEN COMPLETE from 10/13/2024 FINDINGS: Transvaginal sonographic images of the pelvis were obtained. UTERUS: The uterus is surgically absent The vaginal vault is intact. LEFT OVARY: The left ovary was not visualized RIGHT OVARY: 3.2cmx 1.7 cmx1.7 cm with a volume of 4.7ml. The right ovary is seen and appears normal.. Doppler flow to the right ovary is not seen. There is no fluid in the cul-de-sac. IMPRESSION: 1. The uterus is surgically absent. The vaginal vault appears intact. 2. The left ovary is not visualized. The right ovary is seen and appears normal. The right ovary is upper limits of normal in size for this age. There is no vascular flow seen to the right ovary. No edema, large cyst or free fluid that might be indicative of ovarian torsion. 3. No fluid in the cul-de-sac. Dictated by: Diaz Mack MD 10/14/2024 05:19 Diaz Mack MD in OV 10/14/2024 05:20
--- OUTSIDE RECORDS SUMMARY | 2024-10-13 10:14 | XMS_ITS | Data Portability ---
Author Organization [facility] SALINA Gan [place] [facility] Address [address] [place] [address] Care Team Providers Care Sheet Metal Smith Name Role Phone BERNARDO JAIMES Referring Provider Assessment Encounter Date Assessment Date Assessment LastModified by Organization Details LastModified Time 05/12/2022 05/12/2022 1. essential tremor Plan 1. Start propranolol 10 mgm AM and also dose at noon or before evening meal 2. I discussed possible adverse effects of vivid dreams, asthma-like sx, decreased sex drive she will call if these occur 3. recheck in 2 months, sooner if needed. [email or web address] Not available 10/01/2022 14:30:17 07/14/2022 07/14/2022 Assessment: 1. Essential tremor 2. Partial benefit with propranolol 10 mgm x 1 in AM and 1 in afternoon 3. Needs hs primidone Plan: 1. Start primidone 50 mgm at 1/2 hs and each week add 1/2 tab goal 5 tabs hs 2. I will send e-script for Primidone 50mg 3. Follow up in September [email or web address] Not available 07/14/2022 09:41:16 08/20/2023 08/20/2023 Assessment: 1. Essential tremor Plan: 1. Increase primidone 50mg, new dosing 1 tablet in the am and 2 tablets at bed. 2. I spoke with the patient about my longterm in March, follow up will be with Arlette Schreiber PA-C. 3. Follow up in 6 months with Arlette Schreiber PA-C [email or web address] Not available 08/21/2023 10:53:06 05/06/2024 05/06/2024 63 yo here today for tremor recheck She is tolerating the primidone 50mg 1/2 tab in am and 2 tab at bed. She will see how she does with 1 full tab in am. We have also discussed seeing if there would be improvement with low dose gabapentin 100mg 1 cap in am and 1 in pm to get her through her day - no need for night time dose. This may make her sleepy and if so she will stop that. She will only make 1 change at a time. CSA signed today, prescription drug monitoring report reviewed and appropriate. RTC 6m, can be telehealth, PRN [email or web address] Not available 05/06/2024 10:01:07 Plan of Treatment Reminders Order Date Submit Date Provider Last Modified By Organization Details Last Modified Time Details Appointments NEUROLOG Y RECHECK 2024 09:00A M [facility] Not available Not available Not available Lab None recorded . Referral None recorded . Procedures None recorded . Surgeries None recorded . Imaging None recorded . Medication Orders primidon e 50 mg tablet 2024 025 [facility] ([facility]), [address], [address], [place], [place], [id number], 05/06/2024 09:58:41 gabapent in 100 mg capsule 2024 025 [facility] ([facility]), [address], [address], [place], [place], [id number], 05/06/2024 09:58:42 primidon e 50 mg tablet 2023 024 [facility], [facility], [facility] [address], [place], [place], [id number], 08/20/2023 16:41:17 primidon e 50 mg tablet [email or web address] [place] [address], [address] [facility], [address], [place], [address], 08/20/2023 16:18:57 Patient TargetsNo targets recorded. Patient InstructionsNo instructions recorded. Reason for Referral None Reported. Procedures Surgical History Date Name Laterality Status Provider Name and Address Organization Details Recorded Time Colonoscopy completed [facility] 07/14/2022 09:15:53 Partial hysterectomy completed [facility] 07/14/2022 09:16:04 Tonsillectomy completed [facility] 07/14/2022 09:16:09 Imaging Results None recorded. Procedure Notes None recorded. Medical Equipment None Reported. Allergies Allergen ID Allergen Name Allergen Category Reaction Reaction Severity Criticality Documentation Date Start Date Code Code System Note Provider Name and Address Organization Details Recorded Time [id number] primidone medicatio n other Not available Not available 10/08/2022 8691 RxNorm extre me fatig ue MILTON SCHREIBER PA-C [address] [place] [address], [phone] [place] [address] 09:58:49 Medications Name Sig Start Date Stop Date Status Note LastModified by Organization Details LastModified Time primidone 50 mg tablet 1 in Am and 2 pills at bed or as directed by MD 2024 active Not Available Not Available Not Avai lable atorvastati n 80 mg tablet Take 1 tablet every day by oral route. active Not Available Not Available No t Available meloxicam 15 mg tablet Take 1 tablet every day by oral route. active Not Available Not Available No t Available propranolol 10 mg tablet Take one tablet by mouth twice a day - to control tremor 08/19 completed Not Available Not Available Not Available methocarbam ol 750 mg tablet Take 1 tablet twice a day by oral route. active Not Available Not Available No t Available fluoxetine 20 mg tablet Take 1 tablet every day by oral route. active Not Available Not Available No t Available esomeprazol e magnesium 40 mg capsule,del ayed release Take 1 capsule every day by oral route. active Not Available Not Available No t Available gabapentin 100 mg capsule Take 1 capsule twice a day by oral route for 90 days. 2024 active Not Available Not Available Not Avai lable olmesartan 40 mg-hydrochl orothiazide 25 mg tablet Take 1 tablet every day by oral route. active Not Available Not Available No t Available Ozempic 1 mg/dose (4 mg/3 mL) subcutaneou s pen injector Inject by subcutane ous route. active Not Available Not Available No t Available vitamin D3 1,250 mcg (50,000 unit)-vitam in K2 200 mcg capsule Take 1 capsule every week by oral route. active Not Available Not Available No t Available Vitals Date Recorded Body height Body mass index (BMI) Body weight Heart rate Oxygen saturation Oxygen saturation in Arterial blood by Pulse oximetry Systolic blood pressure Diastolic blood pressure Provider Name and Address Organization Details Last Updated DateTime 5 154.94 cm 35.1 kg/m2 77621.1 8 g 72 /min 98 % 98 % 122 mm[Hg] 76 mm[Hg] [facility] 5 09:29:59 Date Recorded Body weight Body mass index (BMI) Body height Oxygen saturation Oxygen saturation in Arterial blood by Pulse oximetry Heart rate Systolic blood pressure Diastolic blood pressure Provider Name and Address Organization Details Last Updated DateTime 3 17837.7 3 g 38.9 kg/m2 154.94 cm 98 % 98 % 70 /min 116 mm[Hg] 74 mm[Hg] Lam[facility] En[facility] 3 09:17:40 Date Recorded Body height Body mass index (BMI) Body weight Systolic blood pressure Diastolic blood pressure Provider Name and Address Organization Details Last Updated DateTime 08/20/2023 154.94 cm 35.7 kg/m2 93836.96 g 120 mm[Hg] 79 mm[Hg] [facility] 4 16:16:20 Social History Question Answer Notes LastModified by Organizat ion Details LastModified Time Tobacco Smoking Status [facility] 09:50:45 What Is Your Level Of Caffeine Consumption? Moderate [email or web address] Information not available 05/06/2024 What Was The Date Of Your Most Recent Tobacco Screening? 07/14/2022 [email or web address] Information not available 07/14/2022 What Is Your Relationship Status? Information not available 05/12/2022 Has Tobacco Cessation Counseling Been Provided? No Information not available 05/12/2022 Sex: Unknown Functional Status Question Answer Note LastModified by Organizat ion Details LastModified Time Do you use any illicit or recreational drugs? No Information not available 05/12/2022 Do you or have you ever used any other forms of tobacco or nicotine? No Information not available 05/12/2022 What is your level of alcohol consumption? None Information not available 05/12/2022 Mental Status None recorded. Family History Relationship Description Onset Age of this Age Resolved Age Notes LastModified by Organization Details LastModified Time Mother Hypertensive disorder [email or web address] Not available 2022 09:49:15 Mother Family history of malignant neoplasm [email or web address] Not available 2022 09:49:45 Mother Diabetes mellitus [email or web address] Not available 2022 09:50:04 Mother Obesity [email or web address] Not available 0 05/12/2022 09:50:19 Brother Heart disease [email or web address] Not available 2022 09:49:22 Father Family history of malignant neoplasm [email or web address] Not available 2022 09:49:45 Father Obesity [email or web address] Not available 0 05/12/2022 09:50:19 Paternal Grandmother Diabetes mellitus [email or web address] Not available 2022 09:50:04 Medical History Condition Response Diabetes N Anxiety Disorder N Arthritis Y Parkinson's Disease N Tuberculosis N Alzheimer's N Cancer N Migraines N Stroke N Depression Y Glaucoma N High Cholesterol Y Heart Disease N Hypertension Y Neurological Problems N Gynecological HistoryNo gynecological history recorded. Obstetrics History GPAL:G 0 P 0 0 0 0 Immunizations Vaccine Type Date Status Note Provider Nam e and Address Organization Details Recorded Time SARS-COV-2 (COVID-19) vaccine, UNSPECIFIED 02/12/2021 completed Jose G Rai [facility] 05/12/2022 09:48:52 Past Encounters Encounter ID Performer Location Encounter Start Date Encounter Closed Date Diagnosis/Indication Diagnosis SNOMED-CT Code Diagnosis ICD10 Code Diagnosis Note [id number] PALLAVI BOBO MD [facility] [place] [facility] [address] [place] [address] 05/12/2022 08:39:58 05/12/2022 13:10:51 Tremor 91844632 R25.1 [id number] PALLAVI BOBO MD [facility] [place] [facility] [address] [place] [address] 07/14/2022 08:27:42 07/14/2022 10:01:21 Essential tremor 679714782 G25.0 Long-term current use of drug therapy 009551152 Z79.899 [id number] PALLAVI BOBO MD [facility] [place] [facility] [address] [place] [address] 08/20/2023 15:02:15 08/22/2023 04:20:34 Essential tremor 653817754 G25.0 [id number] MILTON SCHREIBER PA-C [facility] [place] [facility] [address] [place] [address] 05/06/2024 09:11:17 05/07/2024 05:19:43 Essential tremor 654703611 G25.0 Health Concerns Section Related Observation LastModified by Organization Detai ls LastModified Time None Recorded Concern Status LastModified by Organization Details LastModified Time None Recorded Advance Directives Directive None Recorded Payers Insurance Date Sequence Insurance Name Policy Number Policy Kendrick Covered Member ID Kendrick Member ID Guarantor Name 02/08/2023 PAYMENT PLAN Desire Sunil Guzman 10/06/2024 1 [facility] [id number] Desire L Guzman [id number] Desire Sunil Guzman Notes Date Note Type Note Provider Name and Address Organization Details Recorded Time 05/12/2022 text/html essential tremor PALLAVI OBRIEN MD [address] [place] [address], [phone], [facility] 10/01/2022 14:30:39 07/14/2022 text/html Recheck for [email or web address] year old woman TremorPartial benefit from Propranolol 10mg x1, daily (sometimes BID) She tolerates Propranolol well. She has some tremor still. She rates her current tremor at a 6/7 on a scale from 1-10. She reports that while at work using the [employer] she does not notice her tremor. Current Medications:Propran olol 10mg x1, daily - BID (x1 in AM, optional dose (x1) in afternoon) PALLAVI BOBO MD [address] [place] [address], [phone], [facility] 07/19/2022 13:59:02 08/20/2023 text/html Recheck for Essential [email or web address] year old woman Essential TremorShe comments that she does not have enough tremor control. She is only taking 1 tablet of primidone 50mg in the morning. I suggested she needs greater dose of medication and suggested 1 tablet in the morning and 2 tablets HS. Current Medications:primido ne 50mg PALLAVI BOBO MD [address] [place], [phone], [facility] 08/21/2023 10:53:21 05/06/2024 text/html 63 yo here today for 6m essential tremor recheck. Last saw Dr. Bobo on 08/20/23: 1. Essential tremorPlan: 1. Increase primidone 50mg, new dosing 1 tablet in the am and 2 tablets at bed.She has been seeing Dr. Bobo since Apr 2022 - initially put on propranolol, then primidone added but looks like she initially complained of fatigue with the primidone. Current medication: primidone 50mg 1/2 tab in AM, 2 tab QHS Overall the primidone helps some but not completelyThe propranolol made her very tired and fatigued.Still feels like lots of people will comment on her tremor to her and that is bothersome. MILTON SCHREIBER PA-C [address] [place], [address], [facility] 05/06/2024 10:01:23 OBGyn Episode No OBEpisode recorded.
== END 2024-10-13 23:59 | disposition home or self-care (01) ==
PROVIDERS: PCP Family Medicine; Visit Provider Family Medicine
DX: R10.84 Generalized abdominal pain (principal); Z90.710 Acquired absence of both cervix and uterus; M79.604 Pain in right leg; I10 Essential (primary) hypertension; E78.5 Hyperlipidemia, unspecified
CPT/HCPCS: 76700; 76830; 93971